=== PATIENT | male | born 1995 | race Caucasian/White ===

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

== ENCOUNTER 2018-03-03 14:04 | Observation (INO) ==
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
[2018-03-03 15:29] LABS: BASOPHILS # (AUTO) 0.1 X10^3/uL (0.0-0.1); BASOPHILS % (AUTO) 0.6 % (0.2-1.0); EOSINOPHILS # (AUTO) 0.4 x10^3/uL (0.0-0.2); EOSINOPHILS % (AUTO) 4.1 % (0.9-2.9); HEMATOCRIT 47.2 % (42.0-54.0); HEMOGLOBIN 16.6 g/dL (13.5-18.0); LYMPHOCYTES # (AUTO) 1.8 X10^3/uL (1.3-2.9); LYMPHOCYTES % (AUTO) 18.5 % (21.0-51.0); MEAN CORPUSCULAR HEMOGLOBIN 30.3 pg (27.0-34.0); MEAN CORPUSCULAR HGB CONC 35.1 g/dL (33.0-35.0); MEAN CORPUSCULAR VOLUME 86.3 fL (80.0-100.0); MEAN PLATELET VOLUME 9.6 fL (7.4-11.0); MONOCYTES # (AUTO) 0.8 x10^3/uL (0.3-0.8); MONOCYTES % (AUTO) 8.4 % (0.0-13.0); NEUTROPHILS # (AUTO) 6.7 x10^3/uL (2.2-4.8); NEUTROPHILS % (AUTO) 68.4 % (42.0-75.0); PLATELET COUNT 211 X10^3/uL (150.0-450.0); RED BLOOD COUNT 5.47 X10^6/uL (4.7-6.0); RED CELL DISTRIBUTION WIDTH 14.3 % (11.6-16.5); WHITE BLOOD COUNT 9.8 X10^3/uL (3.6-10.0)
[2018-03-03 15:32] LABS: ALANINE AMINOTRANSFERASE 28 Units/L (12-78); ALBUMIN 4.5 g/dL (3.4-5.0); ALKALINE PHOSPHATASE 71 Units/L (46-116); ASPARTATE AMINO TRANSFERASE 23 Units/L (15-37); BLOOD UREA NITROGEN 37 mg/dL (7-18); CARBON DIOXIDE 30.7 mmol/L (21-32); CHLORIDE 97 mmol/L (98-107); CREATININE 1.21 mg/dL (0.70-1.30); SODIUM 136 mmol/L (136-145); TOTAL PROTEIN 8.1 g/dL (6.4-8.2); eGFR NON BLACK RACES > 60 (>60)
--- NOTE | 2018-03-03 15:47 | CT ---
History: Hematemesis and burning sensation in esophagus for 2 days Study: CT of the thorax without IV contrast. Findings: There is streaky free air in the lower neck surrounding the esophagus extending to the ante rior and superior mediastinum and around the esophagus distally. The lungs are clear. There is no hia manny hernia. There is prominent food in the stomach. No obvious adenopathy is demonstrated. Impression: Boerhaave syndrome, esophageal tear distally probably from the vomiting Reported By:
[2018-03-03 16:13] LABS: BILIRUBIN,URINE NEGATIVE (NEGATIVE); BLOOD/HEMOGLOBIN,URINE 1+ (NEGATIVE); GLUCOSE, URINE NEGATIVE (NEGATIVE); KETONES,URINE NEGATIVE (NEGATIVE); LEUKOCYTE ESTERASE ,URINE NEGATIVE (NEGATIVE); NITRITES,URINE NEGATIVE (NEGATIVE); PROTEIN,URINE 2+ (NEGATIVE); UROBILINOGEN,URINE NORMAL (NORMAL)
[2018-03-03 16:23] LABS: APPEARANCE,URINE CLEAR (CLEAR); COLOR,URINE YELLOW (YELLOW)
[2018-03-03 16:25] LABS: BACTERIA,URINE NEGATIVE /HPF (NEGATIVE); RBC,URINE 0-2 /HPF (NONE SEEN); SQUAMOUS EPITHELIAL CELL,UR RARE /HPF (NEGATIVE)
[2018-03-03] MEDS ORDERED: ZOFRAN INJ 4 MG VIAL IVP ONE (16:40)
[2018-03-03] MEDS ORDERED: ZOFRAN INJ 4 MG VIAL ONE (16:41)
[2018-03-03] MEDS ORDERED: PROTONIX INJ 40 MG VIAL ONE (16:56)
[2018-03-03] MEDS ORDERED: NS 100 ML IV 100 ML IV ONE (16:56)
[2018-03-03] MEDS: PROTONIX INJ 40 MG VIAL 80 MG in NS 100 ML IV 80 ML IV SCH (17:03)
[2018-03-03] MEDS: NS 1000 ML 1,000 ML IV SCH (17:03)
[2018-03-03] MEDS ORDERED: ZOSYN VIAL 3.375 GRAMS 3.375 G in NS 100 ML IV + SPIKE MINIBAG* 100 ML IV ONE (18:18)
[2018-03-03] MEDS ORDERED: NS 100 ML IV + SPIKE MINIBAG* 100 ML IV ONE (18:20)
[2018-03-03] MEDS ORDERED: ZOSYN VIAL 3.375 GRAMS IV ONE (18:21)
[2018-03-03] MEDS ORDERED: ZOFRAN INJ 4 MG VIAL IVP PRN (19:52)
[2018-03-03 20:34] LABS: ALANINE AMINOTRANSFERASE 25 Units/L (12-78); ALBUMIN 4.1 g/dL (3.4-5.0); ALKALINE PHOSPHATASE 60 Units/L (46-116); ASPARTATE AMINO TRANSFERASE 19 Units/L (15-37); BLOOD UREA NITROGEN 31 mg/dL (7-18); CALCIUM 8.3 mg/dL (8.5-10.1); CARBON DIOXIDE 30.9 mmol/L (21-32); CHLORIDE 101 mmol/L (98-107); CREATININE 1.03 mg/dL (0.70-1.30); SODIUM 137 mmol/L (136-145); TOTAL PROTEIN 7.2 g/dL (6.4-8.2); eGFR NON BLACK RACES > 60 (>60)
[2018-03-03 20:51] VITALS: BMI 18.6
[2018-03-04] MEDS ORDERED: DUONEB 0.5 MG/3 MG ONE (00:36)
[2018-03-04] MEDS: NS 1000 ML 1,000 ML IV SCH ×2 (01:44→11:46)
[2018-03-04] MEDS: PROTONIX INJ 40 MG VIAL 80 MG in NS 100 ML IV 80 ML IV SCH (04:05)
[2018-03-04 06:00] LABS: BASOPHILS % (AUTO) 0.6 % (0.2-1.0); EOSINOPHILS # (AUTO) 0.3 x10^3/uL (0.0-0.2); EOSINOPHILS % (AUTO) 4.8 % (0.9-2.9); HEMATOCRIT 40.4 % (42.0-54.0); LYMPHOCYTES # (AUTO) 2.2 X10^3/uL (1.3-2.9); LYMPHOCYTES % (AUTO) 31.7 % (21.0-51.0); MEAN CORPUSCULAR HEMOGLOBIN 30.8 pg (27.0-34.0); MEAN CORPUSCULAR HGB CONC 35.2 g/dL (33.0-35.0); MEAN CORPUSCULAR VOLUME 87.5 fL (80.0-100.0); MEAN PLATELET VOLUME 9.8 fL (7.4-11.0); MONOCYTES # (AUTO) 0.5 x10^3/uL (0.3-0.8); MONOCYTES % (AUTO) 7.5 % (0.0-13.0); NEUTROPHILS # (AUTO) 3.9 x10^3/uL (2.2-4.8); NEUTROPHILS % (AUTO) 55.4 % (42.0-75.0); PLATELET COUNT 170 X10^3/uL (150.0-450.0); RED BLOOD COUNT 4.62 X10^6/uL (4.7-6.0); RED CELL DISTRIBUTION WIDTH 14.5 % (11.6-16.5); WHITE BLOOD COUNT 7.1 X10^3/uL (3.6-10.0)
[2018-03-04 06:13] LABS: HEMOGLOBIN 14.2 g/dL (13.5-18.0)
--- NOTE | 2018-03-04 09:23 | DR.PROGNOT ---
Hospital Progress Notes - Progress Note for Day of: Progress Note Date: 03/04/18 - Chief Complaint Chief Complaint: No chest pain , no nausea or vomiting . no abdominal pain . afebrile and having normal CBC .. - Past Medical Family Social History Past Med/Fam/Surg Hx: No changes since H&P Allergies: Allergies No Known Drug Allergies Allergy (Verified 01/26/18 16:21) - Review Of Systems ROS: No change since H&P - Vital Signs Vital Signs: Temperature 98.5 F Pulse Rate [Left Radial] 60 Pulse Rate 84 Respiratory Rate 20 Blood Pressure [Right Arm] 113/64 Blood Pressure 128/69 O2 Sat by Pulse Oximetry 98 - Physical Exam Oriented: Normal Ear: Normal Throat: Normal Cardiovascular: Normal : Normal GI:Auscultation: Normal GI:Palpation: Normal GI: Tenderness: Normal (soft abdomen , non tender , BS +) Skin: Normal Musculoskeletal: Normal Speech Pattern: Clear, Appropriate - Laboratory and Diagnostics Result Diagrams: 03/04/18 05:12 03/03/18 20:00 Labs: Laboratory WBC 7.1 X10^3/uL (3.6-10.0) 03/04/18 05:12 RBC 4.62 X10^6/uL (4.7-6.0) L 03/04/18 05:12 Hgb 14.2 g/dL (13.5-18.0) D 03/04/18 05:12 Hct 40.4 % (42.0-54.0) L 03/04/18 05:12 MCV 87.5 fL (80.0-100.0) 03/04/18 05:12 MCH 30.8 pg (27.0-34.0) 03/04/18 05:12 MCHC 35.2 g/dL (33.0-35.0) H 03/04/18 05:12 RDW 14.5 % (11.6-16.5) 03/04/18 05:12 Plt Count 170 X10^3/uL (150.0-450.0) 03/04/18 05:12 MPV 9.8 fL (7.4-11.0) 03/04/18 05:12 Neut % (Auto) 55.4 % (42.0-75.0) 03/04/18 05:12 Lymph % (Auto) 31.7 % (21.0-51.0) 03/04/18 05:12 [place] % (Auto) 7.5 % (0.0-13.0) 03/04/18 05:12 Eos % (Auto) 4.8 % (0.9-2.9) H 03/04/18 05:12 Baso % (Auto) 0.6 % (0.2-1.0) 03/04/18 05:12 Neut # (Auto) 3.9 x10^3/uL (2.2-4.8) 03/04/18 05:12 Lymph # (Auto) 2.2 X10^3/uL (1.3-2.9) 03/04/18 05:12 [place] # (Auto) 0.5 x10^3/uL (0.3-0.8) 03/04/18 05:12 Eos # (Auto) 0.3 x10^3/uL (0.0-0.2) H 03/04/18 05:12 Baso # (Auto) 0.0 X10^3/uL (0.0-0.1) 03/04/18 05:12 Absolute Nucleated RBC 0.0 /100WBC 03/04/18 05:12 INR Target Range - 03/03/18 15:09 INR 1.06 (0.8-1.3) 03/03/18 15:09 APTT 29.7 SECONDS (22.9-36.5) 03/03/18 15:09 PTT Comment - 03/03/18 15:09 Sodium 137 mmol/L (136-145) 03/03/18 20:00 Corrected Sodium TNP 03/03/18 20:00 Potassium 3.9 mmol/L (3.5-5.1) 03/03/18 20:00 Chloride 101 mmol/L (98-107) 03/03/18 20:00 Carbon Dioxide 30.9 mmol/L (21-32) 03/03/18 20:00 BUN 31 mg/dL (7-18) H 03/03/18 20:00 Creatinine 1.03 mg/dL (0.70-1.30) 03/03/18 20:00 Est GFR (MDRD) Af Amer > 60 (>60) 03/03/18 20:00 Est GFR (MDRD) Non-Af > 60 (>60) 03/03/18 20:00 Glucose 89 mg/dL (65-99) 03/03/18 20:00 Calcium 8.3 mg/dL (8.5-10.1) L 03/03/18 20:00 Corrected Calcium TNP 03/03/18 20:00 Total Bilirubin 0.50 mg/dL (0.2-1.0) 03/03/18 20:00 AST 19 Units/L (15-37) 03/03/18 20:00 ALT 25 Units/L (12-78) 03/03/18 20:00 Alkaline Phosphatase 60 Units/L (46-116) 03/03/18 20:00 Total Protein 7.2 g/dL (6.4-8.2) 03/03/18 20:00 Albumin 4.1 g/dL (3.4-5.0) 03/03/18 20:00 Globulin 3.1 g/dL (2.5-4.5) 03/03/18 20:00 Albumin/Globulin Ratio 1.3 Ratio (1.1-2.1) 03/03/18 20:00 Specimen Type Clean catch urine 03/03/18 16:02 Urine Color Yellow (YELLOW) 03/03/18 16: Urine Appearance Clear (CLEAR) 03/03/18 16: Urine pH 5.0 (5.0 - 8.0) 03/03/18 16:02 Ur Specific [place] 1.025 (1.000-1.030) 03/03/18 16:02 Urine Protein 2+ (NEGATIVE) 03/03/18 16: Urine Glucose (UA) Negative (NEGATIVE) 03/03/18 16: Urine Ketones Negative (NEGATIVE) 03/03/18 16: Urine Occult Blood 1+ (NEGATIVE) 03/03/18 16: Urine Nitrite Negative (NEGATIVE) 03/03/18 16: Urine Bilirubin Negative (NEGATIVE) 03/03/18 16: Urine Urobilinogen Normal (NORMAL) 03/03/18 16:02 Ur Leukocyte Esterase Negative (NEGATIVE) 03/03/18 16:02 Urine RBC 0-2 /HPF (NONE SEEN) 03/03/18 16:02 Urine WBC 0-2 /HPF (NONE SEEN) 03/03/18 16:02 Ur Squamous Epith Cells Rare /HPF (NEGATIVE) 03/03/18 16:02 Urine Bacteria Negative /HPF (NEGATIVE) 03/03/18 16:02 Ur Culture Indicated? No/not indicated 03/03/18 16:02 - Assessment and Plan 1: pneumomediastinum . recent vomiting and GI bleeding. will repeat chest xray .and recheck this afternoon.. 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
--- NOTE | 2018-03-04 10:03 | RAD ---
Exam: Portable chest History: 22-year-old male with esophageal tear Comparison: None. Findings: Heart size and pulmonary vasculature are normal. Lungs are clear with no infiltrate or significant ef fusion on either side. Bony thorax is unremarkable as well. Impression: No acute cardiopulmonary abnormality is seen on this exam Reported By:
[2018-03-04 11:50] VITALS: BP 117/59
== END 2018-03-04 12:40 | disposition home or self-care (01) ==
LOC: ER 14:04 → MED/SURG 14:04
PROVIDERS: ADMIT Obstetrics & Gynecology Obstetrics; ATTEND Obstetrics & Gynecology Obstetrics
DX: R11.0 Nausea; J98.2 Interstitial emphysema; K92.0 Hematemesis
CPT/HCPCS: 36415; 71010; 71045; 71250; 80053; 81001; 85025; 85610; 85730; 96365; 96367; 96374; 96375; 99284; A4216; A4222; C9113; G0378; J2405; J2543; J7030; J7050; J7620